=== PATIENT | male | born 1990 | race Caucasian/White ===

== ENCOUNTER 2016-08-10 15:07 | Emergency (ER) | payer BC ==
[2016-08-10 16:31] LABS: HEMOGLOBIN 15.2 gm/dl (14.0-17.5); WHITE BLOOD COUNT 10.5 K/UL (4.5-11.0)
[2016-08-10 16:49] LABS: BUN/CREATININE RATIO 11 (0-10)
== END 2016-08-10 17:35 | disposition home or self-care (01) ==
LOC: ER1 15:07
PROVIDERS: Physician Assistant
DX: R11.2 Nausea with vomiting, unspecified (principal); R51 Headache
CPT/HCPCS: 36415; 80053; 82150; 83690; 85025; 96361; 96374; 96375; 99284; J1200; J1885; J2405; J2765